=== PATIENT | male | born 1945 | race Caucasian/White ===

== ENCOUNTER 2025-04-06 06:34 | Day surgery (SDC) | payer MEDICARE, OTHER, SELFPAY ==
[2025-04-06] VITALS (15 sets, daily range): BP systolic 90–153; BP diastolic 55–98; BMI 23.8
[2025-04-06] MEDS: LOW STRENGTH ASPIRIN 81 MG PO (07:07)
--- NOTE | 2025-04-06 07:59 | W.DS.TRANS ---
DC Summary - Survey Engineer
-
Discharge Instructions:
Discharge Diagnosis/Procedures post cardiac cath
Diet Low Fat,Low Cholesterol,Low Sodium
Driving Restrictions No driving for 24 hours
Bathing Restrictions None
Instructions:
Stand-Alone Forms: DC Instructions- Cath/EP Lab
Changes to Home Medications: No
Discharge Medications:
DC Medications w/original date entered in [employer]
lutein 20 mg tablet 20 mg PO QPM Eye condition 09/22/20
psyllium husk 3.4 gram oral powder packet (Metamucil Fiber (aspartame)) 1 packet PO DAILYPRN PRN constipation 03/27/21
aspirin 81 mg tablet,delayed release 81 mg PO DAILY 04/05/25
calcium 250 mg (as citrate)-vitamin D3 5 mcg (200 unit) tablet (Citracal Regular) 1 tab PO BID 04/05/25
fexofenadine 180 mg tablet 180 mg PO PRN PRN ALLERGY 04/05/25
losartan 25 mg tablet 25 mg PO DAILY 04/05/25
metoprolol succinate 25 mg tablet,extended release 24 hr 25 mg PO BID 04/05/25
Home Medication Changes
Pending Results: No
--- NOTE | 2025-04-06 08:00 | ITS.CL.CATH ---
Medical Safety Director - Catheterization
Cardiac Catheterization
Procedure Report:
LEFT HEART CATHETERIZATION
Date of Procedure: April 06, 2025
Primary Care Physician: Dr. Zak Zelaya
Primary Shoe Handler: Myself
INDICATION: The patient is a 79-year-old man with a past medical history significant for mitral valve replacement who is also status post pacemaker placement and has had a asymptomatic drop in LV function with RV pacing. He is referred for coronary
angiography in light of new cardiomyopathy. He has no typical angina
ACCESS: The patient was prepped and draped in usual sterile fashion. A 6 Kittitian sheath was placed in the right radial artery using the Seldinger over the wire technique.
HEMODYNAMIC FINDINGS (mmHg):
LV(s/d,EDP): 127/4, 11
Ao(s/d,m): 125/76, 96
ANGIOGRAPHIC FINDINGS:
Single-plane Left Ventriculography in ROBERT Projection: Not done.
Coronary Angiography:
Dominance: Right
Left Main: Normal
Left Anterior Descending: The LAD is a large-caliber vessel that gives rise to 3 small diagonal branches. The mid LAD is ectatic with mild dilation and luminal irregularities however there is no significant stenotic disease with normal flow in all
vessels.
Left Circumflex: The left circumflex is a medium to large caliber nondominant vessel that gives rise to 2 major obtuse marginal branches that are widely patent with normal flow.
Right Coronary: The right coronary artery is a large-caliber vessel that gives rise to a large caliber posterior descending artery and posterior left ventricular branch. The proximal RCA has mild ectatic dilation and mild ostial stenotic disease
which appears unchanged from prior angiography in 2020.
Fluoroscopy Time (min): 1.5
Radiation Dose (mGy): 161
DAP (Gy.cm2): 11
Closure device: None. A TR band was applied for hemostasis at the right wrist.
Complications: None.
ASSESSMENT:
1: Very mild nonobstructive coronary artery disease unchanged from 2020.
2: Well compensated left ventricular filling pressures
CONCLUSIONS and RECOMMENDATIONS:
1: Proceed with planned upgrade to LBB/ORTHOPEDIC DESIGNER pacing as planned with Dr. George.
2: Continue current medications.
3: Close clinical follow-up.
Trevon Palmer M.D.
Copy to: Dr. Zak Zelaya
== END 2025-04-06 10:58 | disposition home or self-care (01) ==
LOC: CATH 06:34
PROVIDERS: ATTENDING PHYSICIAN Internal Medicine Interventional Cardiology; FAMILY PHYSICIAN Family Medicine
DX: I25.10 Atherosclerotic heart disease of native coronary artery without angina pectoris (principal); Z95.0 Presence of cardiac pacemaker; Z95.2 Presence of prosthetic heart valve; I42.9 Cardiomyopathy, unspecified; Z79.82 Long term (current) use of aspirin; Z79.899 Other long term (current) drug therapy
CPT/HCPCS: 93458; C1894; Q9967

== ENCOUNTER → 2025-04-08 10:37 | Outpatient (REF) | payer MEDICARE, OTHER, SELFPAY ==
[2025-04-08 11:44] LABS: Hematocrit 47.4 % (39.0-52.0); Hemoglobin 16.1 g/dL (13.0-18.0); Mean Corp Hgb Conc. 34.0 g/dL (33.0-37.0); Mean Corpuscular Volume 94.2 fL (80.0-94.0); Nucleated Red Blood Cells % 0 % (-); Platelet Count 196 10^3/uL (130-400); Red Cell Dist. Width 12.5 % (11.5-14.5)
[2025-04-08 12:26] LABS: ALT (SGPT) 17 U/L (0-50); AST (SGOT) 21 U/L (17-59); Albumin 4.7 g/dl (3.5-5.0); Alkaline Phosphatase 70 U/L (38-126); Blood Urea Nitrogen 21 mg/dl (9-20); Calcium 10.9 mg/dl (8.4-10.2); Carbon Dioxide 31 mmol/L (22-30); Chloride 105 mmol/L (98-107); Glucose 81 mg/dl (70-99); Potassium 4.8 mmol/L (3.5-5.1); Sodium 139 mmol/L (135-145); Total Protein 7.7 g/dl (6.3-8.2); eGFR > 60.00
[2025-04-08 12:36] LABS: Magnesium 2.2 mg/dl (1.6-2.3)
== END ==
LOC: SDSPAT 10:37
PROVIDERS: ATTENDING PHYSICIAN Internal Medicine Cardiovascular Disease; FAMILY PHYSICIAN Family Medicine; OTHER PHYSICIAN Internal Medicine Interventional Cardiology
DX: I42.9 Cardiomyopathy, unspecified (principal)
CPT/HCPCS: 36415; 80053; 83735; 85025; 93005

== ENCOUNTER 2025-04-25 12:00 | Day surgery (SDC) | payer MEDICARE, OTHER, SELFPAY ==
[2025-04-08 10:59] VITALS: BMI 23.5
--- NOTE | 2025-04-25 11:41 | W.ICD.CONTRA ---
Post ICD/FINE WIRE DRAWER-D
-
History of OR?: No
LV Function
Left ventricular function study result?: Ejection Fraction </= 35%
ACEI/ARB/ARNI
Patient already on ACEI/ARB/ARNI: Yes
Beta-Jossy
Patient already on Beta Jossy: Yes
[2025-04-25 12:18] VITALS: BP 142/90
[2025-04-25 12:24] VITALS: BP 142/90
[2025-04-25 13:32] VITALS: BP 111/64
--- NOTE | 2025-04-25 13:39 | ITS.CL.PACE ---
Music Composer - Pacemaker Implant
Pacemaker Implant
Procedure Report:
Date: April 25, 2025
Procedure:
Planned procedure is upgrade of dual-chamber pacemaker to BAND SAW RUNNER pacing system
Procedure performed is venography of the upper extremity left central venous system
History:
He underwent dual-chamber pacemaker implantation approximately 4 years ago. He is RV paced dependent. He has developed severe left ventricular systolic dysfunction. Recent ischemic evaluation shows no significant coronary artery disease. It is
believed that his severe left ventricular systolic dysfunction is related to unopposed right ventricular pacing. He has been referred for consideration for upgrade to BAND SAW RUNNER pacing system.
Given that lead replaced 4 years ago, there is concern for possible occlusion which will not allow placement of a new lead.
Therefore he presents initially for venography.
Procedure:
Antecubital left upper extremity venous access was obtained. He was brought to the electrophysiology suite. Venography was performed to evaluate the patency of his left upper extremity and central venous system.
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
Recommendations:
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
either cardiac resynchronization pacemaker or cardiac resynchronization defibrillator.
I have discussed this with the patient, his and his son. I have also discussed this with his referring marine electronics technician, Dr. Palmer
Additionally I have discussed the case with regarding consideration for lead extraction and reimplantation.
- Appointment has been made to see Dr. Cardenas in the outpatient setting this coming Friday04/27/25 at 2 PM
[2025-04-25 13:45] VITALS: BP 126/81
[2025-04-25 14:00] VITALS: BP 125/72
[2025-04-25 14:15] VITALS: BP 134/81
== END 2025-04-25 14:35 | disposition home or self-care (01) ==
LOC: CATH 12:00
PROVIDERS: ATTENDING PHYSICIAN Internal Medicine Cardiovascular Disease; FAMILY PHYSICIAN Family Medicine
DX: I48.0 Paroxysmal atrial fibrillation (principal); I11.0 Hypertensive heart disease with heart failure; I50.22 Chronic systolic (congestive) heart failure; I42.8 Other cardiomyopathies; I44.2 Atrioventricular block, complete; I25.10 Atherosclerotic heart disease of native coronary artery without angina pectoris; Z95.2 Presence of prosthetic heart valve; G25.0 Essential tremor; G47.33 Obstructive sleep apnea (adult) (pediatric); Z85.46 Personal history of malignant neoplasm of prostate; Z79.82 Long term (current) use of aspirin
CPT/HCPCS: 36005; 75820; C1769; Q9967

== ENCOUNTER 2025-06-06 05:02 | Inpatient (IN) | payer MEDICARE, OTHER, SELFPAY ==
[2025-05-19 13:31] VITALS: BMI 23.7
[2025-05-19 13:56] LABS: Hematocrit 46.9 % (39.0-52.0); Hemoglobin 16.1 g/dL (13.0-18.0); Mean Corp Hgb Conc. 34.3 g/dL (33.0-37.0); Mean Corpuscular Volume 95.5 fL (80.0-94.0); Nucleated Red Blood Cells % 0 % (-); Platelet Count 194 10^3/uL (130-400); Red Cell Dist. Width 12.4 % (11.5-14.5)
[2025-05-19 14:03] LABS: INR 1.02; PT 13.9 Sec (11.4-14.6)
[2025-05-19 14:22] LABS: ALT (SGPT) 23 U/L (0-50); AST (SGOT) 23 U/L (17-59); Albumin 4.6 g/dl (3.5-5.0); Alkaline Phosphatase 72 U/L (38-126); Blood Urea Nitrogen 22 mg/dl (9-20); Calcium 10.6 mg/dl (8.4-10.2); Carbon Dioxide 30 mmol/L (22-30); Chloride 105 mmol/L (98-107); Estimated Creatinine Clearance 67 ml/min; Glucose 79 mg/dl (70-99); Potassium 4.6 mmol/L (3.5-5.1); Sodium 138 mmol/L (135-145); Total Protein 7.4 g/dl (6.3-8.2); eGFR > 60.00
[2025-06-06] VITALS (12 sets, daily range): BP systolic 91–167; BP diastolic 55–104; BMI 23.8
[2025-06-06] MEDS: BACTROBAN 2% OINTMENT 1 APPLIC NASAL (05:54)
--- NOTE | 2025-06-06 05:58 | PTCARENOTE ---
Pt admitted to room 2265. Oriented to room. Changed into gown. Pt confirmed 2 showers at home and NPO status. Weight/VS obtained. Admission questions completed. Home medications confirmed. Pt took his Losartan yesterday morning (06/05), Ronald
aware. Pt prepped and wiped w/ CHG wipes. IV started in left arm - documented in worklist. Type and screen cancelled by lab - not needed. Ronald also made aware via TT that anesthesia consult is not complete and consent needs to be signed. Family
at the bedside. Questions encouraged. Call bowie within reach.
--- NOTE | 2025-06-06 13:40 | ITS.CL.ICD ---
It Director - ICD
Implantable Cardioverter Defibrillator
Procedure Report:
Extraction Procedure:
Extraction of pacemaker system including extraction of RV lead and placement of FOUNDER PRESIDENT AND CEO-D (cardiac resynchronization therapy with defibrillator)
Mr. Street is an 79 y/o gentleman, known to Drs. Palmer and Doris with h/o complete heart block s/p dual chamber PPM (03/27/2021-� St Venkat), with hx of mitral valve replacement with bioprosthetic mitral valve has developed severe LV systolic
dysfunction with LVEF of 20% with NYHA class III symptoms and has remained severely reduced LVEF despite on maximally tolerated medical therapy was recommended a BiV ICD upgrade and underwent upgrade attempt on 04/25/25 when subclavian vein
occlusion was identified. He is 100% RV paced and is dependent on his pacemaker. He was sent for lead extraction and upgrade.
Indications:
Primary prevention of sudden cardiac with pacemaker dependency with upgrade to FOUNDER PRESIDENT AND CEO-D with systolic dysfunction with occluded venous system.
Date of the Procedure: 06/06/2025
Pre-Operative Diagnosis: Complete heart block with chronic severe systolic heart failure
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
Procedure Performed:
����������� RV lead extraction
����������� ICD placement
����������� CS lead attempt for FOUNDER PRESIDENT AND CEO-D
����������� Conduction system pacing lead placement. �
Performing Physicians:
Sabrina Cardenas MD
Anesthesia:
See anesthesia records
Detailed Description of the Procedure:
Written informed consent was obtained from the patient after a full explanation of the risks and benefits of the procedure. The patient was brought to the lab in the fasting state. Prophylactic antibiotics were given prior to the start of the
procedure. Continuous electrocardiographic and hemodynamic monitoring was initiated.
The initial rhythm was normal sinus with RV paced rhythm.
The PPM was interrogated and patient was 100% RV paced and was dependent with no underlying rhythm noted. The PPM was programmed to VVI 70.
General anesthesia with intubation and mechanical conventional ventilation used. Anesthesia staff performed intubation monitored the patient during case. The ventral torso was meticulously prepared with surgical scrub and allowed to dry with no
pooling. Sterile draping was applied to cover the operative field. The image intensifier was draped with a sterile bag and positioned over the patient's chest.
A surgical pause was performed in accordance with hospital regulations.� Anesthesia service provided sedation as reported separately.� Antibiotics administered IV for risk of bacterial colonization.
Venogram:
A 20 ml upper extremity venogram demonstrated occluded left subclavian vein immediately after insertion into the subclavian vein. There was collateral flow from the vertebral vein to the IJ from the left arm.
Groin Prep and vascular access:
After infiltration with lidocaine, large bore venous access was established via the right and left femoral veins. An intra-arterial catheter was placed via the left femoral artery for emergency access.
A 6 Fr peelaway sheath was placed and the guidewire was placed from the right femoral vein to the right IJ. This was used for the anchor and guide for the endovascular occlusion balloon.
Temporary Pacemaker Placement:
A 6Fr temporary wire was placed in the left groin via a 6Fr sheath. The temp wire was advanced and placed in the RV with adequate threshold noted. The temp wire was placed at VVI 60.
It was removed under fluoroscopy guidance at the end of the case.
Pocket Exploration:
After infiltration with lidocaine, an incision was made in the left delto-pectoral groove over the previous scar. Using blunt dissection and electrocautery, the incision was carried down to the level of the device, being careful to maintain adequate
hemostasis and not disrupt the previously implanted leads. Fluoroscopy was performed with showed normal appearance of the existing leads and during the procedure. The generator was removed from the pocket. The leads were individually released from
the scar tissue and the fibrotic tissue was removed.
RV lead extraction:
The RV lead was removed from the generator. The RV lead was imaged and was noted to be attached to the RV septal apex. A stylet was advanced to the tip and the attempt was done to unscrew and the tip screw was noted to be able to get retracted
inside the lead. The lead was pulled but was not able to pull out.
The subclavian vein was cannulated using a cook needle. A guide wire was placed.
A constant traction and counter traction force was applied and the lead was able to come out with the loss of slack in the lead. Further pull was able to release it from the septal wall and was successfully removed from the body. There was no much
bleed back noted due to venous occlusion.
Then the attention was placed towards the re-implantation.
RV ICD placement:
Using the glidewire, the long 9Fr peelaway sheath was advanced into SVC. The right ventricular lead was placed at the RV apical septum with defibrillator coil well into the RV cavity and screwed in place with appropriate sensing and threshold.
RA and RV leads were tested and functioning appropriately with upright current of injury (lead information below). The leads were secured to the deep fascia with 0-Silk sutures placed on the anchoring sleeves.
Coronary sinus lead placement:
Attention turned to the coronary sinus. The guide wire was advanced to the IVC and a long hemostatic peel away sheath was advanced to the RA.
The CS was cannulated using radiofocus glidewire.
Using the glidewire, the long 9Fr peelaway sheath was advanced into the CS over a Terumu glidewire. Coronary sinus venography was obtained with a balloon catheter in the CS. ~4 cc contrast used. CS anatomy revealed two posterolateral (PL) branches.
The CS was cannulated using a deflectable pacing catheter ([employer] decapolar). An inner sheath was used for better support. The postero-lateral PL branch was accessed using a BMW wire. The quadripolar lead for passive fixation was used and advanced
into the lateral br over the BMW. During pacing, QRS complex was favorable, with a QS in lateral leads and RBBB configuration during LV pacing. It was deemed ideal for biventricular pacing.
The lead fell down out of the CS with removal of the inner sheath. The lead was placed multiple times and other PL br were accessed with the same result of these leads falling out of the CS. The RA was severely dilated with CS coming out of the mid
septal location. There was no perch available for the CS sheath and the lead was dislodged.
Next a longer CS lead was used to encircle the right atrium to avoid dislodgement but the CS sheath remained unstable.
The decision was made to switch to active pacing CS lead (by Medtronic) but it was not able to go deep into the CS and the cs lead would fall out.
A total of 15 attempts [address] made [address] the CS lead without success and dislodgements.� Decision was made to proceed to conduction system pacing lead placement.
The guide wire was advanced to the RA and was advanced to the RV. The preformed curved long hemostatic peel away HIS sheath was advanced into the RV cavity. A left bundle pacing wire was advanced into the sheath to the tip with ventricular signals
noted with unipolar manner.
The HIS location was identified under guidance of the fluoroscopy and the pacing wire signals. The sheath with the pacing lead was moved deeper into the RV cavity on the septum at a more inferior and distal to the HIS signals.
Once adequate signals were noted on the electrograms of the pacing lead in the sheath with W pattern signals on the RV septum, the lead was advanced and clockwise turns were done under fluoroscopic guidance.
The distal coil locking system was engaged at the St Venkat pacing lead. The septum was engaged and the lead was paced intermittently after every 2-3 turns. The Impedance of the lead was measured that remained stable around 500 Ohm and the lead was
not able to advance into the septum. The pacing signals from the lead showed only RV septal pacing, though narrow but not left bundle pacing. This was thought to be due to the entanglement effect of the lead to the septal endocardium. The decision
was made to remove the lead and relocate to another locations.
Finally another septal location was identified with adequate signals noted on the pacing leads and good flouroscopic location. There was sheath approximation confirmed on YEMENI view and the pacing lead was advanced with clockwise turns into the septal
location. The septum was successfully engaged. The lead was paced and septal pacing was noted. The sheath was placed again to the septum and the lead was advanced 2-3 turns with pacing with each advancement. The ventricular capture was monitored
throughout and the captures gradually changed from RV pacing to non-selective pacing to LBB pacing with R wave on V1 morphology.�
The long guiding sheath was cut and removed from the RV without change in lead position, impedance, sensing, or capture. The lead was sutured to the underlying pectoralis fascia with 2-0 Ethibond stitches.
A pursestring suture using Vicryl was applied around the insertion site of the leads.
The leads were attached to the pulse generator in standard configuration with acceptable sensing and threshold parameters. The pocket was irrigated with antibiotic solution; the pocket was inspected with no active bleeding noted. The device and the
leads were placed in the pocket. The pocket was adjusted to accept the new generator.
Deep subcutaneous tissues were closed with 2-0 VLOC sutures; intermediate subcutaneous tissue was reopposed using a running 2-0 V loc suture, and the dermis was reopposed using a running 4-0 Monocryl subcuticular suture. A pressure dressing was
applied. Sponge counts / sharp counts were appropriate.
Procedure End:
The procedure was tolerated well. A bandage was applied to the incision area to be removed in a day.
A pressure dressing was applied.
The temporary wire was removed under fluoroscopy guidance without any movement to the leads. The compliant balloon and its wire were removed in the similar fashion.
The sheaths were removed from the groin. Manual pressure applied to access sites to achieve hemostasis. Anesthesia was reversed and the anesthesia staff extubated then observed the patient until the return of pre-sedation mental status. The patient
was transferred to the recovery area.
Estimated Blood loss:
10 cc
Specimens Removed:
Old generator and the RV pacing leads removed.
The unused and dislodged leads were also removed.
Urine output:
None
Packs / Drains/ Tubes:
None
Instrument / Sponge Count Correct:
Yes
Complications of the Procedure:
None
Condition of Patient at Time of Transfer:
Hemodynamically stable with no neurological or vascular compromise.
Explanted Device information: Explanted on 06/06/2025 (Initially implanted on 03/27/2021)
����������� Generator: St Venkat [id number], SN: [id number]
����������� RV lead:� SJM; Model # 2088 TC/52; Serial # [id number]
Other used but removed leads
St Venkat; Model: Quartet 1458Q-86; Serial # [id number]
St Venkat; Model: Quartet 1458Q-92; Serial # [id number]
Medtronic; Model: 4798-88cm; Serial # [id number]���������
New Implanted Device information:
Generator: Kingsoft Cloud; Model: [id number]; Serial # [id number] (implanted 06/06/2025)
Atrial Lead: St Venkat; Model: 2088TC-46; Serial # [id number] (implanted on 03/27/2021)
����������������������� Measured data in the right atrium was sensing of 4.7 mV and, impedance of 380ohms and threshold of 0.75 V at 0.5ms
RV ICD Lead: St Venkat; Model: HGW905V-56; Serial # [id number] (implanted 06/06/2025)
����������������������� Measured data on the RV lead was impedance of 480 ohms and threshold of 0.5 V at 0.5ms (No R waves with 100% dependence)
LBB/LV pacing lead: St Venkat; Model: IJP0006-24; Serial # [id number]
����������������������� Measured data on the LV lead was impedance of 600 ohms and threshold of 0.75V at 0.5ms
PROGRAMMING PARAMETERS:
Vladimir parameter settings were DDD 60-120�
�����������
Tachy parameter settings:
����������� VT zone:
����������������������� Slow VT: 150-180 bpm - Monitor
����������������������� Fast VT: 181-200 bpm � ATP then Shock
����������������������� VF: >200bpm� Shock� x6 �- ATP while charging.
�
Summary:
Successful implantation of MRI compatible St Venkat FOUNDER PRESIDENT AND CEO-D (Conduction system pacing) after Successful extraction of the RV pacing lead and pacemaker generator in pacemaker dependent patient.
Results/Recommendations:
1-Please follow up CXR and ECHO
2. Please Admit to CVICU for observation.
3. Keep Foleys in place and Lasix 40 mg IV x1 tonight.
4. Please keep the defibrillator pads on and keep on Telemetry.
5. Please give Ancef 2 grams tonight
�
Sabrina Cardenas MD [facility]
Electrophysiology
--- NOTE | 2025-06-06 13:45 | PTCARENOTE ---
received pt from boat laborer. Pt AAOx4, VSS, 100% V paced w/ occasional A pacing. HR 70s. +pulses, PPM/ICD set to DDD 60-120. lungs diminished pox 95% on 6L NC. occasional non productive cough. +bs, jang draining clear yellow urine. B/L groins c.d.i.
soft no hematoma noted. R groin w/ figure 8 sututre. L PPM incision c/d/i. PIV x1 intact. R Rad a-line flushed, leveled and zeroed. plan of care discussed and questiones encouraged. call bowie within reach. see worklist for full assessment and
nursing interventions.
--- NOTE | 2025-06-06 15:52 | PTCARENOTE ---
pt placed on 40L HFNC d/t cxray showing small apical pneumo. pox 98%. assessment remains unchanged otherwise.
--- NOTE | 2025-06-06 15:55 | CM ---
Reviewed chart. Went to see Mr. Street and he was asleep. Telephone call to Mrs. Street to review discharge plans. She states prior to admission he resides with her in a [facility] plus long term community- [facility]. She states they have been there
for six years. She states they have a one story home with one step to enter. She states prior to admission he weas independent with ambulation and adls. She states he has a CPAP Machine at home andd no other DME. She states he has a prescription
plan and uses [facility]. She states he has [facility] in the past after his open heart surgery. Medical work-up in progress. The discharge plan is to return home with his spouse when medically stable.
--- NOTE | 2025-06-06 16:58 | PTCARENOTE ---
R groin fig. 8 suture removed.
--- NOTE | 2025-06-06 17:59 | PTCARENOTE ---
R rad a-line removed
--- NOTE | 2025-06-06 20:00 | PTCARENOTE ---
Assumed care of pt from frank RN. Walking rounds completed. Pt AAOx3. Resting in the chair. V-paced or A/V paced on the tele monitor. HR 60-70s. BP stable. Palpable pulses throughout. No edema noted. Pt on high flow NC. 40L / 40%. POX 97-99%.
Lung sounds audible. Deep breathing encouraged. Abdomen round. +BSx4. No nausea. Abdul catheter intact and draining yellow urine. B/L groin sites intact. Left upper chest Aquacel intact. Left arm immobilizer in place. PIV x1 intact. Normosol
infusing. Pt denies pain at this time. Call bowie within reach.
[2025-06-06] MEDS: TOPROL XL 25 MG PO (20:06)
[2025-06-06] MEDS: ANCEF 5 IV (20:07)
[2025-06-07 00:13] VITALS: BP 121/75
--- NOTE | 2025-06-07 00:50 | PTCARENOTE ---
No acute changes in assessment. Between V-paced and A/V paced. HR 60s. VSS. 99% on highflow NC. Settings unchanged. 40L / 40%. No c/o pain. Left arm immobilizer intact. Abdul catheter intact and draining clear urine. Call bowie within reach.
[2025-06-07 03:11] VITALS: BP 142/78
[2025-06-07] MEDS: ANCEF 5 IV (03:25)
[2025-06-07 03:34] LABS: Hematocrit 41.1 % (39.0-52.0); Hemoglobin 14.0 g/dL (13.0-18.0); Mean Corp Hgb Conc. 34.1 g/dL (33.0-37.0); Mean Corpuscular Volume 93.2 fL (80.0-94.0); Platelet Count 156 10^3/uL (130-400); Red Cell Dist. Width 12.3 % (11.5-14.5)
--- NOTE | 2025-06-07 03:35 | PTCARENOTE ---
No change in assessment. Pt is A/V paced on the tele monitor. HR 60s. BP stable. Abdul catheter intact and draining yellow urine. B/L groins and left upper chest site intact. Left arm immobilizer in place. Pt repositioned in bed. Labs drawn and
sent. No pain at this time. Call bowie within reach.
[2025-06-07 03:57] LABS: Blood Urea Nitrogen 15 mg/dl (9-20); Calcium 9.3 mg/dl (8.4-10.2); Carbon Dioxide 27 mmol/L (22-30); Chloride 108 mmol/L (98-107); Estimated Creatinine Clearance 96 ml/min; Glucose 128 mg/dl (70-99); Potassium 4.4 mmol/L (3.5-5.1); Sodium 137 mmol/L (135-145); eGFR > 60.00
[2025-06-07 06:20] VITALS: BMI 24.0
--- NOTE | 2025-06-07 07:29 | W.PN.CD ---
Today's Communication / Plan
-
- Follow-up CXR and echo today
- Likely move out of the ICU or discharge home today
Impression / Plan
-
79-year-old gentleman with history of complete heart block status post pacemaker in 2020 with heart failure with reduced ejection fraction EF 20%, NYHA class III symptoms, CAD with nonobstructive disease, severe MR, status post MVR 2020, who
underwent RV pacemaker lead extraction with occluded venous system and upgrade to BiV ICD with conduction system pacemaker.
Lead extraction
- Pacemaker lead removed. 06/06/2025
- Air-trapping noted in left lung could be a sign of small pneumo versus trapped air with extensive exploration of the pocket.
- Hemodynamically stable. Not on oxygen and maintaining oxygen saturation.
- There is no indication for chest tube.
- Repeat chest x-ray to evaluate for increase in size. The trapped air may take 1 to 2 weeks to get absorbed. If the size is not increasing, patient can safely go home.
BURIAL VAULT SETTER-D upgrade
- Patient's pacemaker lead was removed and BiV device was attempted. Patient's CS lead dislodged multiple times and decision was made to switch to conduction system pacer.
- EKG shows left bundle capture with right bundle branch block and QRS duration of 112 ms
- Follow-up echo planned today.
Heart failure reduced ejection fraction
- LVEF 20% dropped from 50% from 2022.
- Left heart cath without any obstructive disease.
- On losartan, and metoprolol.
- Continue to increase maximally tolerated. Current active medical therapy.
- With optimized QRS with his new device, patient may be able to tolerate addition of further CHF medications.
- Consider addition of Farxiga
Physical Exam
Vital Signs/Labs
Vital Signs
Temp Pulse Resp BP Pulse Ox
98.5 F 63 18 142/78 100
06/07/25 03:11 06/07/25 06:15 06/07/25 03:11 06/07/25 03:11 06/07/25 03:52
06/06/25 06/07/25 06/08/25
06:59 06:59 06:59
Actual Weight 84.1 kg 84.9 kg
06/07/25 03:22
06/07/25 03:22
PT 13.9 Sec (11.4-14.6) 05/19/25 13:39
INR 1.02 05/19/25 13:39
Physical Exam
Constitutional: No acute distress and Comfortable
EENT: Anicteric and Moist mucous membranes
Cardiovascular: Rhythm & rate is regular, Pedal edema is absent and JVD pressure is normal
Respiratory: Respiratory effort normal, Lungs clear to auscul. and Wheeze Absent
GI: Soft, Non tender and Normal bowel sounds
Neuro/Psych: Alert, Oriented and AO x 3
Other: Cardiac Device Site
Data Reviewed
-
Date of Service: June 07, 2025
Medical Decision Making: Reviewed Test Results, Test Interpretation and Review of Case with other Provider
EKG: Tracing Personally Visualized and interpreted
Echo: Report Reviewed by me
Labs: Labs Reviewed by me
Old Records: Reviewed
Critical Care Time (in minutes): 35
--- NOTE | 2025-06-07 07:41 | W.PN.ANS.POP ---
Anesthesia Post Operative
- Anesthesia Post Op Note
Vital Signs Stable-See Nursing Note: Yes
Airway Patent: Yes
Adequate Pain Control: Yes
Change in Mental Status: No
Current Postoperative Nausea & Vomiting: No
Anesthesia Complications: No
General Anesthetic Recall: No
Unplanned Admission: No
Post Op Hydration Adequate: Yes
--- NOTE | 2025-06-07 07:51 | W.ICD.CONTRA ---
Post ICD/SUPERANNUATION CLERK-D
-
History of MS?: No
LV Function
Left ventricular function study result?: Ejection Fraction </= 35%
ACEI/ARB/ARNI
Patient already on ACEI/ARB/ARNI: Yes
Beta-Jossy
Patient already on Beta Jossy: Yes
[2025-06-07 08:00] VITALS: BP 112/94
[2025-06-07] MEDS: ASPIR LOW (ENTERIC COATED) 81 MG PO (08:10)
[2025-06-07] MEDS: TOPROL XL 25 MG PO (08:11)
[2025-06-07] MEDS: COZAAR 25 MG PO (08:11)
[2025-06-07] MEDS: FARXIGA 10 MG PO (08:11)
--- NOTE | 2025-06-07 09:25 | PTCARENOTE ---
Received pt from shift superintendent RN at 0700; Pt AAOx3 and resting comfortably in chair; A/V paced 100% on monitor and VSS; PIVx1 patent; Lungs diminished; positive bowel sounds; pt DVT since post Abdul removal; palpable pulses throughout; no edema
noted; all surgical sites C/D/I; see nursing documentation for further updated.
--- NOTE | 2025-06-07 11:03 | CM ---
Reviewed chart. Asked to check co-pay for Farxiga. Telephone call to [facility], ([phone]) to check the co-pay for Farxgia. He has a $590.00 that has not been met. So his first co-pay would be %350.00 a month. After his deductiblke has been met
he pays %25 of the cost of the valdez of the medication, Aprrox. 87.50. Reviewed co-pay with him. He is agreeable to the co-pay. Placed the one month free coupon in his red discharge folder. he states prior to admission he resides with her in a
plus [facility]. He states they have been there for six years. He states they have a one story home with one step to enter. He states prior to admission he was independent with ambulation and adls. He states he has a CPAP
Machine at home and no other DME. He has a prescription plan with [facility] and uses [facility]. He has [facility] in the past after his open heart surgery. Medical work-up in progress. The discharge plan is to return home with his spouse
when medically stable.
[2025-06-07 11:38] VITALS: BP 146/75
--- NOTE | 2025-06-07 11:44 | PTCARENOTE ---
Assessment unchanged; A/V paced on monitor and VSS; pt resting comfortably in chair with family at bedside.
--- NOTE | 2025-06-07 12:56 | W.DS.TRANS ---
DC Summary - Manual Qa Tester
-
Discharge Instructions:
Discharge Diagnosis/Procedures RV Lead extraction with new RV ICD lead and RV
pacing lead, ICD upgrade
Diet Low Cholesterol
Driving Restrictions No driving for 1 week
Bathing Restrictions OK to Shower
Others Tests Chest XRay in 1 week at [facility]-
results to Dr. Cardenas
Instructions:
Stand-Alone Forms: DC Instructions- Cath/EP Lab
DC Inst - Implanted Device
Changes to Home Medications: Yes
Discharge Medications:
DC Medications w/original date entered in [employer]
lutein 20 mg tablet 20 mg PO QPM Eye condition 09/22/20
psyllium husk 3.4 gram oral powder packet (Metamucil Fiber (aspartame)) 1 packet PO DAILYPRN PRN constipation 03/27/21
aspirin 81 mg tablet,delayed release 81 mg PO DAILY Blood Clot Prevention/Tx 04/05/25
calcium 250 mg (as citrate)-vitamin D3 5 mcg (200 unit) tablet (Citracal Regular) 1 tab PO BID Supplement 04/05/25
fexofenadine 180 mg tablet 180 mg PO DAILYPRN PRN ALLERGY 04/05/25
losartan 25 mg tablet 25 mg PO DAILY Blood Pressure 04/05/25
metoprolol succinate 25 mg tablet,extended release 24 hr 25 mg PO BID Heart Disease/Condition 04/05/25
dapagliflozin propanediol 10 mg tablet 10 mg PO DAILY #30 tabs 06/07/25
Home Medication Changes
NEW: dapagliflozin
Pending Results: No
[2025-06-07 15:34] VITALS: BP 125/77
--- NOTE | 2025-06-07 16:15 | PTCARENOTE ---
Discharge papers reviewed with pt and family, all questions answered; IV and manufactured buildings repairer removed; pt dressed with assistance; family to bring car around for discharge.
== END 2025-06-07 16:42 | disposition home or self-care (01) | DRG 277 ==
LOC: CVICU 05:02
PROVIDERS: Nurse Practitioner; ADMITTING PHYSICIAN Internal Medicine Cardiovascular Disease; CONSULT PHYSICIAN Anesthesiology; FAMILY PHYSICIAN Family Medicine; OTHER PHYSICIAN Internal Medicine Interventional Cardiology
PROC: 02H43KZ Insertion of Defibrillator Lead into Coronary Vein, Percutaneous Approach (ICD-10-PCS; 2025-06-06)
PROC: 02HK3KZ Insertion of Defibrillator Lead into Right Ventricle, Percutaneous Approach (ICD-10-PCS; 2025-06-06)
PROC: 02PA3MZ Removal of Cardiac Lead from Heart, Percutaneous Approach (ICD-10-PCS; 2025-06-06)
PROC: 0JPT0PZ Removal of Cardiac Rhythm Related Device from Trunk Subcutaneous Tissue and Fascia, Open Approach (ICD-10-PCS; 2025-06-06)
PROC: 0JH609Z Insertion of Cardiac Resynchronization Defibrillator Pulse Generator into Chest Subcutaneous Tissue and Fascia, Open Approach (ICD-10-PCS; 2025-06-06)
DX: I44.2 Atrioventricular block, complete (principal); I42.8 Other cardiomyopathies; I50.22 Chronic systolic (congestive) heart failure; I45.2 Bifascicular block; I25.10 Atherosclerotic heart disease of native coronary artery without angina pectoris; I11.0 Hypertensive heart disease with heart failure; I48.0 Paroxysmal atrial fibrillation; I07.1 Rheumatic tricuspid insufficiency; G47.33 Obstructive sleep apnea (adult) (pediatric); G25.0 Essential tremor; Z79.82 Long term (current) use of aspirin; Z79.899 Other long term (current) drug therapy; Z86.718 Personal history of other venous thrombosis and embolism; Z92.3 Personal history of irradiation; Z95.0 Presence of cardiac pacemaker; Z95.3 Presence of xenogenic heart valve
CPT/HCPCS: 33225; 33233; 33235; 33249; 36415; 71045; 71046; 80048; 80053; 85025; 85027; 85610; 86850; 86900; 86901; 86920; 93005; 93308; 93321; 93325; C1730; C1769; C1882; C1892; C1894; C1895; C1898; C1900